=== PATIENT | male | born 1965 ===

== ENCOUNTER 2017-10-06 07:37 | Emergency (ER) | payer OTHER ==
[~2017-10-06] VITALS: Ht 177.8 cm; Wt 90.7 kg
[2017-10-06] MEDS ORDERED: TUSSI PRES-B L120 M1 PO (09:42)
[2017-10-06] MEDS ORDERED: OSEL75CA PO (09:42)
== END 2017-10-06 10:04 | disposition home or self-care (01) ==
LOC: ER 07:37
DX: B34.9 Viral infection, unspecified (principal)

== ENCOUNTER 2019-11-12 14:01 | Emergency (ER) | payer OTHER ==
[~2019-11-12] VITALS: Ht 177.8 cm; Wt 92.1 kg
[~2019-11-12 14:01] MED LIST: OSEL75CA PO; TUSSI PRES-B L120 M1 PO
[2019-11-12] MEDS ORDERED: LIPITOR20 MG PO (14:20)
[2019-11-12] MEDS ORDERED: FAMCICLOVIR500 MG PO (16:26)
[2019-11-12] MEDS ORDERED: GABAPENTIN100 M2 PO (16:26)
[2019-11-12] MEDS ORDERED: KETO10TA2 PO (16:26)
== END 2019-11-12 16:56 | disposition home or self-care (01) ==
LOC: ER 14:01
DX: B02.9 Zoster without complications (principal)

== ENCOUNTER → 2023-01-05 | Emergency (ER) | payer OTHER ==
[~2023-01-05] VITALS: Ht 177.8 cm; Wt 91.6 kg
[~2023-01-05] MED LIST changes: +FAMCICLOVIR500 MG PO; +GABAPENTIN100 M2 PO; +KETO10TA2 PO; +LIPITOR20 MG PO
== END | disposition home or self-care (01) ==
LOC: ER 21:29
DX: R00.2 Palpitations (principal); F41.8 Other specified anxiety disorders